=== PATIENT | female | born 1965 | race Caucasian/White ===

== ENCOUNTER 2018-10-24 10:50 | Observation (INO) ==
[2018-10-24 11:32] LABS: Basophils % 0.1 % (0.0-0.8); Eosinophils % 0.4 % (0.00-10.9); Hematocrit 36.2 VOL% (35.7-47.0); Hemoglobin 11.4 GM/DL (12.0-16.0); Immature Granulocytes % 1.1 %; Immature Granulocytes Absolute 0.08 #; Lymphocytes # 0.4 10*3/uL (1.4-4.0); Lymphocytes % 5.3 % (21.3-54.2); Mean Corpuscular HGB Conc 31.5 GM/DL (32-36); Mean Corpuscular Hemoglobin 28 PG (27-34); Mean Corpuscular Volume 88.1 FL (87-102); Mean Platelet Volume 9.7 FL (9.6-12.0); Monocytes # 0.4 10*3/uL (0.11-0.8); Monocytes % 4.7 % (1.7-12.7); Neutrophils # 6.5 10*3/uL (1.4-7.4); Neutrophils % 88.4 % (38.7-73.9); Platelet Count 236 T/CUMM (130-400); Red Blood Count 4.11 MC/CUMM (3.8-5.5); Red Cell Distribution Width 14.6 % (9.3-17.3); White Blood Count 7.4 T/CUMM (4-12)
[2018-10-24 11:45] LABS: INR 0.9; PT Patient Result 9.9 SECS; Partial Thromboplastin Time 22.1 SECS (0-40)
[2018-10-24 11:54] LABS: Albumin 3.6 G/DL (3.4-5.0); Bilirubin,Total 0.4 MG/DL (0.2-1.0); Calcium 8.6 MG/DL (8.5-10.1); Osmolality,Calculated 276.7 MOS/KG (273-304); Potassium 3.8 MMOL/L (3.5-5.1); Total Protein 6.8 G/DL (6.4-8.3)
[2018-10-24] MEDS ORDERED: ALBUTEROL 2.5 MG/3 ML NEB RESP TX STA ×2 (13:00→14:44)
[2018-10-24] MEDS ORDERED: ACETAMINOPHEN 325 MG TABLET PO PRN (15:06)
[2018-10-24] MEDS ORDERED: PROMETHAZINE 25 MG TABLET PO PRN (15:06)
[2018-10-24] MEDS ORDERED: LEVOFLOXACIN INJ 500 MG in PREMIX 1 EACH IV SCH (15:30)
[2018-10-24] MEDS ORDERED: METAXALONE 800 MG TABLET PO PRN (15:42)
[2018-10-24] MEDS ORDERED: methylPREDNISolone SOD SUC 125 MG/2 ML VIAL IV STA (15:57)
[2018-10-24] MEDS ORDERED: METAXALONE 800 MG TABLET PO ONE (17:24)
[2018-10-24] MEDS ORDERED: ENOXAPARIN 40 MG/0.4 ML SYRINGE SUBCUT SCH (17:30)
[2018-10-24] MEDS: KETOROLAC 15 MG/1 ML VIAL IV SCH ×2 (17:54→23:35)
[2018-10-24] MEDS: methylPREDNISolone SOD SUC 40 MG/1 ML VIAL IV SCH ×2 (17:56→22:28)
[2018-10-24] MEDS: ARFORMOTEROL 15 MCG/2 ML NEB RESP TX SCH (19:14)
[2018-10-24] MEDS: ALBUTEROL/IPRATROPIUM 3 ML NEB RESP TX SCH (19:14)
[2018-10-24] MEDS: BUDESONIDE 0.5 MG/2 ML NEB RESP TX SCH (19:15)
[2018-10-24] MEDS: HYDROcodone/CHLORPHENIRAMINE ER 5 ML UDCUP PO SCH (22:27)
[2018-10-24] MEDS: PANTOPRAZOLE 40 MG TABLET PO SCH (22:28)
[2018-10-25] MEDS: ALBUTEROL/IPRATROPIUM 3 ML NEB RESP TX SCH ×2 (00:55→07:32)
[2018-10-25] MEDS: methylPREDNISolone SOD SUC 40 MG/1 ML VIAL IV SCH (04:15)
[2018-10-25 04:59] LABS: Hematocrit 35.5 VOL% (35.7-47.0); Hemoglobin 11.1 GM/DL (12.0-16.0); Immature Granulocytes % 1.3 %; Immature Granulocytes Absolute 0.07 #; Lymphocytes # 0.4 10*3/uL (1.4-4.0); Lymphocytes % 7.3 % (21.3-54.2); Mean Corpuscular HGB Conc 31.3 GM/DL (32-36); Mean Corpuscular Hemoglobin 28 PG (27-34); Mean Corpuscular Volume 88.5 FL (87-102); Mean Platelet Volume 9.7 FL (9.6-12.0); Monocytes # 0.2 10*3/uL (0.11-0.8); Monocytes % 4.2 % (1.7-12.7); Neutrophils # 4.5 10*3/uL (1.4-7.4); Neutrophils % 87.2 % (38.7-73.9); Platelet Count 221 T/CUMM (130-400); Red Blood Count 4.01 MC/CUMM (3.8-5.5); Red Cell Distribution Width 14.5 % (9.3-17.3); White Blood Count 5.2 T/CUMM (4-12)
[2018-10-25 05:27] LABS: Calcium 8.6 MG/DL (8.5-10.1); Osmolality,Calculated 282.7 MOS/KG (273-304); Potassium 3.9 MMOL/L (3.5-5.1); Risk Ratio 3.07; Thyroid Stimulating Hormone 0.165 uIU/ml (0.358-3.74)
[2018-10-25] MEDS: KETOROLAC 15 MG/1 ML VIAL IV SCH (06:15)
[2018-10-25] MEDS: BUDESONIDE 0.5 MG/2 ML NEB RESP TX SCH (07:32)
[2018-10-25] MEDS: ARFORMOTEROL 15 MCG/2 ML NEB RESP TX SCH (07:45)
[2018-10-25 08:35] VITALS: BP 122/90
[2018-10-25] MEDS ORDERED: PANTOPRAZOLE 40 MG TABLET PO SCH (09:00)
[2018-10-25] MEDS: PANTOPRAZOLE 40 MG TABLET PO SCH (09:25)
[2018-10-25] MEDS: HYDROcodone/CHLORPHENIRAMINE ER 5 ML UDCUP PO SCH (09:26)
== END 2018-10-25 09:27 | disposition home or self-care (01) ==
LOC: N.EDINP 10:50 → N.ED 10:50 → N.TELEN 17:05
PROVIDERS: ADMIT Family Medicine; ATTEND Family Medicine